=== PATIENT | male | born 1970 | race Two or more races ===

== ENCOUNTER → 2025-03-09 | Emergency (ER) | payer OTHER ==
[~2025-03-09] VITALS: Ht 165.1 cm; Wt 76.2 kg
[~2025-03-09] MED LIST: NAPR-1009 PO
[2025-03-09 08:52] VITALS: BP 149/86; TEMP 98.4; O2SAT 98
== END | disposition home or self-care (01) ==
LOC: ER 08:08
DX: S20.219A Contusion of unspecified front wall of thorax, initial encounter (principal); I10 Essential (primary) hypertension; V89.2XXA Person injured in unspecified motor-vehicle accident, traffic, initial encounter; Y93.89 Activity, other specified; Y92.410 Unspecified street and highway as the place of occurrence of the external cause; Y99.8 Other external cause status
CPT/HCPCS: 99283; 71045; A4217